=== PATIENT | male | born 1975 | race Caucasian/White ===

== ENCOUNTER 2019-01-16 09:56 | Emergency (ER) | payer BC ==
[2019-01-16 10:02] VITALS: BP 148/91; PULSE 90; RESP 18; TEMP 98.9
--- NOTE | 2019-01-16 10:15 | ED ---
Fall HPI - General Chief Complaint: Fall Stated Complaint: Fell off roof/Rt side pain Time Seen by Provider: 01/16/19 10:02 Source: patient Mode of arrival: ambulatory - History of Present Illness Initial Comments: 43-year-old male who denies past medical history presenting today for chief complaint of fall with right hip and right sided rib pain. Patient states that he was on his roof trying to fix an antenna when he slipped and fell on ice sliding down the roof and onto his right side. ~10 ft. Patient states he mostly has right hip. Patient states he did hit the right side of his chest in his ribs. Denies any anterior chest trauma. Denies hitting his head or injury to the neck or back. Patient denies any low back pain. Patient states he is ambulatory he denies any loss of consciousness. He denies any headache nausea vomiting visual changes. Patient states that the hip pain was severe last night however it seems to be improving today. Patient denies any significant bruising of the abdomen right hip or chest. Patient denies any dyspnea or chest pain. He states there is pain in the ribs with deep inspiration. Patient denies any other areas of injury denies any injuries of the upper extremities or the left lower extremity. Denies any sharp shooting pains down the legs. Remaining review of systems negative upon arrival patient appears well no signs of acute distress. Remaining review of systems (-), Patient denies any recent fever, chills, numbness or tingling, dysuria or hematuria, constipation or diarrhea, or any other complaints. - Related Data Allergies Allergy/AdvReac Type Severity Reaction Status Date / Time No Known Allergies Allergy Verified 01/16/19 09:59 Review of Systems ROS Statement: Those systems with pertinent positive or pertinent negative responses have been documented in the HPI. ROS Other: All systems not noted in ROS Statement are negative. Past Medical History Past Medical History: No Reported History History of Any Multi-Drug Resistant Organisms: None Reported Past Surgical History: No Surgical Hx Reported Past Psychological History: No Psychological Hx Reported Smoking Status: Never smoker Past Alcohol Use History: Occasional Past Drug Use History: None Reported General Exam - General Exam Comments Initial Comments: General: The patient is awake and alert, in no distress, and does not appear acutely ill. Eye: +3 mm pupils are equal, round and reactive to light, extra-ocular movements are intact. No nystagmus. There is normal conjunctiva bilaterally. No signs of icterus. Ears, nose, mouth and throat: There are moist mucous membranes and no oral lesions. No raccoon or Hale sign contusions abrasions of the scalp.. Neck: The neck is supple, there is no tenderness or JVD. No midline tenderness to palpation of the cervical thoracic or lumbar spine. Negative straight leg raise bilaterally. Cardiovascular: There is a regular rate and rhythm. No murmur, rub or gallop is appreciated. Respiratory: Lungs are clear to auscultation, respirations are non-labored, breath sounds are equal. No wheezes, stridor, rales, or rhonchi. Due patient of the right lateral ribs. There is no pain to palpation of the anterior chest wall. Gastrointestinal: Soft, non-distended, non-tender abdomen without masses or organomegaly noted. There is no rebound or guarding present. Bowel sounds are unremarkable. Musculoskeletal: Normal inspection of the right hip no soft tissue swelling or ecchymosis. Patient is able to fully range the hips equal comparison bilaterally. Patient does admit to discomfort range of motion at the right hip. Patient is tender to palpation over the lateral right thigh. Patient has no pain to palpation of the knee or ankle. Full range motion at the knees and ankles equal comparison bilaterally. Normal ROM, no tenderness of the upper extremities. Strength 5/5. Sensation intact both proximal and distal to injury. Radial and DP pulses equal bilaterally 2+. No evidence of foot drop. Neurological: A&O x 3. CN II-XII intact, There are no obvious motor or sensory deficits. Coordination appears grossly intact. Speech is normal. Skin: Skin is warm and dry and no rashes or lesions are noted. Psychiatric: Cooperative, appropriate mood & affect, normal judgment. Limitations: no limitations Course Vital Signs 01/16/19 09:59 Temperature 98.9 F Pulse Rate 90 Respiratory 18 Rate Blood Pressure 148/91 O2 Sat by Pulse 98 Oximetry Medical Decision Making - Medical Decision Making 43-year-old male presenting for follow-up. Patient denies any head trauma. Patient not on anticoagulation therapy. No significant ecchymosis or swelling on physical examination. Patient denies any neck or back pain. Patient denies any neurological symptoms. Patient has no focal neurological deficits. Patient does have pain with patient the right ribs, x-ray revealed multiple rib fractures. No evidence of significant displacement no evidence of pneumothorax. I did review imaging studies. X-ray of the hips and pelvis within normal limits. No evidence of fracture or dislocation. Patient neurovascularly intact. Patient is tense abdominal pain no pain to palpation. No pain palpation of the anterior chest wall. At this time feel patient is stable for discharge with strict return parameters for a neurological symptoms, abdominal pain, dyspnea. Patient given incentives prompted her to prevent atelectasis from splinting. REturn parameters were discussed at length the patient verbalizes understanding. She refuses any pain medications while in the emergency department upon discharge. Patient agreeable discharge plan as well as outpatient primary care follow-up. I did discuss the case attending provider Dr. Dudley who is agreeable plan and discharged. Disposition Clinical Impression: Ribs, multiple fractures, Right hip pain Disposition: HOME SELF-CARE Condition: Good Instructions (If sedation given, give patient instructions): Rib Fracture (ED) , R.I.C.E. Treatment (ED) Additional Instructions: Please use medication as discussed. Please follow-up with family doctor in the next 2 days. Please use incentive spirometer daily as discussed. Please return for any abdominal pain, headache, neck/back pain, chest pain, shortness of breath. Please return to emergency room if the symptoms increase or worsen or for any other concerns. Is patient prescribed a controlled substance at d/c from ED?: No Referrals: Tanna Cash MD [Primary Care Provider] - 1-2 days Time of Disposition: 11:23
--- NOTE | 2019-01-16 11:08 | XR ---
EXAMINATION TYPE: PA chest and right rib series DATE OF EXAM: 01/16/2019 COMPARISON: 12/26/2008 HISTORY: 43-year-old male with pain after fall TECHNIQUE: 5 views FINDINGS: The cardiomediastinal silhouette, aorta, and pulmonary vasculature are within normal limits. Lungs an d pleural spaces are clear. Right RIBS: 3.4 cm sclerotic focus surgical neck of the right humerus likely bone island. Subtle nondisplaced fra ctures of the right lateral fourth, fifth, 6, and 7 ribs. Subtle cortical irregularity also involving the right lateral third rib. IMPRESSION: 1. No acute cardiopulmonary process. 2. Subtle nondisplaced fractures of the right lateral fourth through seventh ribs and possible additi onal nondisplaced fracture of the lateral third rib.
--- NOTE | 2019-01-16 11:09 | XR ---
EXAMINATION TYPE: AP view pelvis and 2 views right hip DATE OF EXAM: 01/16/2019 COMPARISON: NONE HISTORY: 43-year-old male with pain after fall FINDINGS: SI joints appear symmetric and intact as does the pubic symphysis. Hips appear symmetric and intact. No acute fracture, subluxation, or dislocation seen. IMPRESSION: No acute osseous abnormality seen.
== END 2019-01-16 11:35 | disposition home or self-care (01) ==
LOC: EC 09:56
DX: S22.41XA Multiple fractures of ribs, right side, initial encounter for closed fracture (principal); M25.551 Pain in right hip; W00.0XXA Fall on same level due to ice and snow, initial encounter; W13.2XXA Fall from, out of or through roof, initial encounter
CPT/HCPCS: 73502; 99283